=== PATIENT | female | born 2005 | race Caucasian/White ===

== ENCOUNTER 2024-08-29 13:52 | Inpatient (IN) | payer BC, SELFPAY ==
[2024-08-29 10:19] VITALS: BP 130/87
[2024-08-29 11:25] VITALS: BMI 23.8
[2024-08-29] MEDS: TYLENOL 650 MG PO ×3 (11:25→21:08)
[2024-08-29] MEDS: NSS 1000 IV ×2 (11:26→17:30)
--- NOTE | 2024-08-29 11:43 | ED.GENMED ---
History of Present Illness
General
Chief Complaint: Urinary Symptoms
Source: patient
Exam Limitations: none
Time Seen by Provider: 08/29/24 10:57
Nursing documentation reviewed up to this point in time: agreed with
History of Present Illness
History of Present Illness:
19 yo female with no PMHX presents with urinary symptoms, fever, nausea, and back pain. Approximately two weeks ago, she began experiencing symptoms suggestive of a urinary tract infection, including urgency to urinate. These symptoms initially
resolved within a couple of days. However, she noted cloudy urine persisting over the last two weeks. Four days prior to this visit, she developed significant lower back pain, predominantly on the left side. Two days ago, she had a fever of around
100-101�F. Her primary care physician noted bacterial presence and trace blood in her urine, consistent with a urinary tract infection, and prescribed a 10-day course of antibiotics. The patient has taken three doses so far.
Over the past 24 hours, the patient reported an escalation in fever, reaching up to 103.5-103.8�F, and experienced increased nausea, which limited her oral intake. She vomited after taking her morning doses of antibiotic and acetaminophen on an
empty stomach. She describes her back pain, which was significant earlier in the week, as having improved with antibiotics but remains present, especially noticeable upon movement.
Past History
Past History
ED Past Medical History: Hypothyroidism
ED Past Surgical History: Orthopedic and Other (Partial thyroidectomy, tonsillectomy, adenoidectomy)
Social History
Tobacco: Non-smoker
Alcohol: Occasional
Personal: Single
Living: with family
Employment: Employed
Review of Systems
Review of Systems
Allergies reviewed?: Yes
All Other Systems: ROS reviewed and negative except as documented in HPI and ROS
Constitutional: Reports fever; Denies chills
Respiratory: Denies trouble breathing
Cardiac: Denies chest pain
ABD/GI: Reports nausea; Denies abdominal pain, vomiting or diarrhea
: Reports urgency; Denies dysuria, frequency or difficulty voiding
Musculoskeletal: Reports back pain
Skin: Reports no symptoms
Phy Exam
Physical Exam
Physical Exam:
GENERAL: No acute distress. A&Ox3.
CONSTITUTIONAL: T 103.1
EYES: clear, conjunctivae normal
ENMT: moist mucus membranes, Pharynx nl
RESPIRATORY: Regular respirations, nonlabored, lungs clear.
CARDIOVASCULAR: Regular rate and rhythm, no murmurs, no rubs. Tachycardic 130
GI: Soft, nontender, normal BS, Flanks non tender to percussion.
MUSCULOSKELETAL: Moves with ease. Well perfused.
SKIN: Warm, dry, pink
PSYCH: Normal mood and affect. Well kept, interactive and appropriate
NEUROLOGIC: Awake, alert and oriented. No focal neurological deficits
Sepsis
Sepsis Screening
Sepsis Assessment: Sepsis
Sepsis Screen
Sepsis Screen: Sepsis
Date: 08/29/24
Time: 15:47
Course
Orders/Labs/Results
Orders:
Orders
08/29/24 10:59
Acetaminophen [Tylenol] 650 mg PO NOW STA
08/29/24 11:00
0.9% Sodium Chloride 1000 ml [Nss] 1,000 ml IV BOLUS
08/29/24 11:01
Test Result ONCE
08/29/24 11:24
Complete Blood Count/With Diff Urgent
Comprehensive Metabolic Panel Urgent
HCG, Serum Qualitative Screen Urgent
Lactic Acid Q4H
Comment: CANCEL 2nd LACTIC ACID IF 1st LACTIC ACID IS LESS THAN 2
Urinalysis Reflex To Culture Urgent
Date Specimen was Collected: 08/29/24
Time Specimen was Collected: 11:20
Urine Microscopic Reflex Cult Urgent
Blood Culture Q30M
RICHAR Source: Blood/Venous
Specimen Description:
Blood Culture Q30M
RICHAR Source: Blood/Venous
Specimen Description:
Urine Culture Urgent
RICHAR Source: U
Specimen Description:
Date Specimen was Collected: 08/29/24
Time Specimen was Collected: 11:20
08/29/24 11:45
Ondansetron Injectable [Zofran] 4 mg IV NOW STA
08/29/24 12:14
CefTRIAXone [Rocephin] 1,000 mg IV NOW STA
08/29/24 12:32
Admit/Transfer Patient As Directed
Co-Sign Provider:
Level of Care: Inpatient admission
Assign to:: Medical/Surgical
Physician / Group: Kathy
Diagnosis: Pyelonephritis
Reason for Hospitalization: IVFs, IV abx
Expected length of stay greater than two midnights?: Yes
ELOS- Estimated Length of Stay in days: 3
I certify the patient meets the requirements for IP care: Yes
PRN Pain Medication Management As Directed
May give lesser potent ordered pain med per pt: Yes
preference::
Protocol:: Medication orders for pain may be administered in a
manner that supports deferring to patient preference
when the pt is:
- Requesting an ordered lesser potent pain medication.
Least to most potent pain medications are defined
as: acetaminophen < NSAID < tramadol < opioids
(morphine, oxycodone, hydromorphone).
- Requesting a lesser dose of the same medication IF
ORDERED.
- Requesting a less intrusive route of administration
if both routes are prescribed by the provider (PO <
IV).
08/29/24 12:36
Code Status As Directed
Resuscitation Status: Full Code
Abnormal Lab Results
08/29/24
11:24
WBC 18.9 H 10^3/uL
(4.8-10.8)
Abs Immat Gran (auto) 0.1 H 10^3/uL
(0-0.05)
Absolute Neuts (auto) 16.7 H 10^3/uL
(1.4-6.5)
Absolute Lymphs (auto) 0.4 L 10^3/uL
(1.2-3.4)
Absolute Monos (auto) 1.7 H 10^3/uL
(0.1-0.6)
Neutrophils % 88.2 H %
(42.2-75.2)
Lymphocytes % 2.2 L %
(20.5-51.1)
Sodium 133 L mmol/L
(135-145)
Glucose 102 H mg/dl
(70-99)
Urine Ketones 3+ A
(Negative)
Ur Occult Blood Reflex 4+ A
(Negative)
Leukocyte Esterase Rfl 2+ A
(Negative)
Urine RBC 11-15 A /HPF
(0-2)
Urine WBC (Reflex) 30-40 A /HPF
(0-5)
Urine Bacteria (Reflex) Few A
(Negative)
Urine Albumin (Reflex) 2+ A
(Neg - Trace)
08/29/24 11:24
08/29/24 11:24
Vital Signs
Initial and Last Documented VS:
Initial Vital Signs
Temp Pulse Resp BP Pulse Ox
103.1 F H 130 16 130/87 95
08/29/24 10:19 08/29/24 10:19 08/29/24 10:19 08/29/24 10:19 08/29/24 10:19
Last Documented Vital Signs
Temp Pulse Resp BP Pulse Ox
98.5 F 91 16 118/63 99
08/29/24 12:48 08/29/24 12:48 08/29/24 10:19 08/29/24 12:48 08/29/24 12:48
MDM/Problems Addressed
Differential Diagnosis Includes:
- Complicated urinary tract infection
- Pyelonephritis
MDM/Problems Addressed:
19 yo female with no PMHX presents with urinary symptoms, fever, nausea, and back pain. Approximately two weeks ago, she began experiencing symptoms suggestive of a urinary tract infection, including urgency to urinate. These symptoms initially
resolved within a couple of days. However, she noted cloudy urine persisting over the last two weeks. Four days prior to this visit, she developed significant lower back pain, predominantly on the left side. Two days ago, she had a fever of around
100-101�F. Her primary care physician noted bacterial presence and trace blood in her urine, consistent with a urinary tract infection, and prescribed a 10-day course of antibiotics. The patient has taken three doses so far.
Over the past 24 hours, the patient reported an escalation in fever, reaching up to 103.5-103.8�F, and experienced increased nausea, which limited her oral intake. She vomited after taking her morning doses of antibiotic and acetaminophen on an
empty stomach. She describes her back pain, which was significant earlier in the week, as having improved with antibiotics but remains present, especially noticeable upon movement.
T 103.1 Tylenol ordered
Plan:
- Perform blood work to assess for infection indicators.
- Obtain a repeat urine sample for analysis.
- Administer an initial dose of intravenous antibiotics.
- Provide intravenous fluids for hydration and management of potential dehydration.
- Consider imaging (such as an ultrasound) based on test results.
- Administer antiemetics intravenously to manage nausea.
- Monitor patient response and consider admission based on evaluation results.
12:15 p.m.
CBC: WBC 18.9 w shift
CMP:Unremarkable
U/A: 30-40 WBCs, 2+ leukocytes, negative nitrites
Plan: Admit: Acute pyelonephritis
Hospitalist notified of admission
Blood and urine cultures pending
*Pulse Oximetry
SaO2: 95
Oxygen Mode of Delivery: Room air
Patient hypoxic: no
*Critical Care Note
Total Time (30-74mins, 75-104mins- exclusive of procedures): Not Applicable
Patient Management
Social determinants of health affecting care: Strong social support
ED Attending Note
-
Portions of this chart may have been created with voice recognition software.� Occasional wrong word or��sound alike� substitutions may have occurred due to the inherent limitations of voice recognition software.
Discharge Plan
Departure
Patient Disposition: Admit
Date of Disposition: 08/29/24
Time of Disposition: 12:22
Admit to: Med/Surg
Presentation/result/management discussed w/ accepting MD/DO: Hospitalist
Condition: Fair
Discharge Problem:
Acute pyelonephritis
Interventions
Interventions:
*Risk Screen - Suicide Last Done: 08/29/24 10:21
*General Assessment Last Done: 08/29/24 11:07
*Neglect/Abuse Screening Last Done: 08/29/24 10:21
*ED- Fall Risk Assessment Last Done: 08/29/24 11:07
*ED COVID-19 Vaccine History Last Done: 08/29/24 11:07
ED-Female Genitourinary Assessment Last Done: 08/29/24 11:40
[2024-08-29 11:46] LABS: Hematocrit 37.8 % (37.0-47.0); Hemoglobin 12.6 g/dL (12.0-16.0); Mean Corp Hgb Conc. 33.3 g/dL (33.0-37.0); Mean Corpuscular Volume 86.7 fL (81.0-99.0); Nucleated Red Blood Cells % 0 %; Platelet Count 227 10^3/uL (130-400); Red Cell Dist. Width 12.4 % (11.5-14.5); Urine Character Clear (Clear)
[2024-08-29] MEDS: ZOFRAN 4 MG IV (11:48)
[2024-08-29 11:54] LABS: Urine Squamous Cell >30 /LPF (Few)
[2024-08-29 11:55] LABS: Urine White Cell 30-40 /HPF (0-5)
[2024-08-29 12:10] LABS: ALT (SGPT) 16 U/L (0-35); AST (SGOT) 20 U/L (14-36); Albumin 4.8 g/dl (3.5-5.0); Alkaline Phosphatase 69 U/L (38-126); Blood Urea Nitrogen 8 mg/dl (7-17); Calcium 9.1 mg/dl (8.4-10.2); Carbon Dioxide 23 mmol/L (22-30); Chloride 99 mmol/L (98-107); Estimated Creatinine Clearance 124 ml/min; Glucose 102 mg/dl (70-99); Potassium 3.8 mmol/L (3.5-5.1); Sodium 133 mmol/L (135-145); Total Protein 8.0 g/dl (6.3-8.2); eGFR > 60.00
[2024-08-29 12:14] LABS: HCG, Serum Qualitative Screen Negative
--- NOTE | 2024-08-29 12:32 | HPS.HSE ---
Family Physician
-
Family Physician: Cathi Anna
Chief Complaint
-
Fever
History of Present Illness
Patient is a 19 y/o female past medical history of post-surgical hypothyroidism who presents with fever and back pain. Patient reports about 2 weeks ago she was experiencing some urinary frequency which resolved on it own. On Sunday, 5 days ago she
developed some left sided back pain. Two days ago she developed fevers. She saw her PCP yesterday who started her on Bactrim for a urinary tract infection for which she took two doses. Today she continued with high fevers, and developed
nausea/vomiting prompting her to come to the emergency department for evaluation. She denies any history of kidney stones.
Medical History
Past Medical History
Past Medical History: Reports Other
Additional Past Medical History:
Post-Surgical Hypothyroidism
Past Surgical History: Reports Other
Additional Past Surgical History:
Partial Thyroidectomy for Benign Mass
Social History
Tobacco: Non-smoker
Alcohol: Occasional
Family History
Family History: Not pertinent
Allergies / Home Medications
Allergies reflects when Allergies were last updated in [facility].
Home Medications with original date entered in [facility]
Allergy/Medication List:
Allergies
Allergy/AdvReac Type Severity Reaction Status Date / Time
NKA - No Known Allergies Allergy Uncoded 05/31/07 08:45
Home Medications
acetaminophen 325 mg tablet (Tylenol) 650 mg PO Q6HPRN PRN mild pain 08/29/24
ascorbic acid (vitamin C) 500 mg tablet (Vitamin C) 500 mg PO DAILY 08/29/24
levothyroxine 25 mcg tablet 25 mcg PO DAILY 08/29/24
kp-skp-xqikh 120 mcg-biotin 1,250 mcg-K1 60 aou-cwigbspm-xqwp capsule (Hair, Skin And Nails (Herbs)) 1 cap PO DAILY 08/29/24
sulfamethoxazole 800 mg-trimethoprim 160 mg tablet (Bactrim DS) 1 tab PO BID 08/29/24
vitamin B complex 1 tab PO DAILY 08/29/24
Review of Systems
-
A 12 point ROS was completed and negative except as noted: Yes
Constitutional: Reports Fever
Respiratory: Denies Cough or Trouble Breathing
Cardiac: Reports Chest Pain; Denies Palpitations
Abdomen/GI: Denies Abdominal Pain
: Reports Dysuria, Frequency and Flank Pain
Physical Exam
Vital Signs
Vital Signs
Temp Pulse Resp BP Pulse Ox
103.1 F H 130 16 130/87 95
08/29/24 10:19 08/29/24 10:19 08/29/24 10:19 08/29/24 10:19 08/29/24 11:45
Physical Exam
General: Comfortable and Conversant
HEENT: Anicteric and Moist mucous membranes
Respiratory: Clear and Non Labored Respirations; No Wheezes, Rales or Rhonchi
Cardiac: S1/S2 and Regular Rhythm; No Murmur
GI: Soft, Non Tender, Non Distended and Normal Bowel Sounds
Rectal: Deferred by Provider
Genito-urinary: No costovertebral tender (Following Tylenol given in ED)
Musculoskeletal: No Clubbing, No Cyanosis and No Edema
Skin: Warm and Dry; No Rash
Neuro: Awake, Alert, Oriented and Nonfocal/grossly intact
Psych: Calm
Laboratory Results
-
08/29/24 11:24
08/29/24 11:24
Laboratory Results
Lactic Acid Cancelled 08/29/24 15:15
Total Bilirubin 0.8 mg/dl (0.2-1.3) 08/29/24 11:24
AST 20 U/L (14-36) 08/29/24 11:24
ALT 16 U/L (0-35) 08/29/24 11:24
Alkaline Phosphatase 69 U/L (38-126) 08/29/24 11:24
Data Reviewed
-
Lab Data: Labs Reviewed by me
Impression/Plan
-
Sepsis secondary to Pyelonephritis, failed outpatient antibiotics
-Continue ceftriaxone
-Continue IVFs
-Allow clear liquids and advanced diet as tolerate
-Await urine and blood cultures
Post-Surgical Hypothyroidism
-Continue levothyroxine
[2024-08-29] MEDS: ROCEPHIN 1000 MG IV (12:35)
[2024-08-29 12:48] VITALS: BP 118/63
--- NOTE | 2024-08-29 13:12 | W.PN.UPDATE ---
Update Note
Progress Note Update
This is an addendum to the H&P written by Kareen Jarvis on 08/29/2024. �Patient seen and examined independently with PA.
19-year-old female past medical history postsurgical hypothyroidism presenting with urinary urgency, fever, nausea and left back pain starting 2 weeks ago. �Was started on 10-day course of antibiotic and completed 3 doses.
Patient with fever of 103, heart rate 130.
Labs show leukocytosis. �Urinalysis shows WBC 30-40, +2 leukocyte esterase.
Presentation consistent with acute left-sided pyelonephritis. �Check urine culture, blood cultures, IV fluids, ceftriaxone.
--- NOTE | 2024-08-29 14:52 | CM ---
Patient seen at bedside with patient mother also present in ED. Patient states that she lives with her mother and father in a 2 story home. Patient stated that she did not have any DME needs in the past. Patient PCP is Dr. Anna and she uses
the [facility] on [address] CM will continue to follow for discharge planning needs.
Plan; home with parents; watch for VN needs
[2024-08-29 17:23] VITALS: BP 123/76; BMI 23.7
[2024-08-29 23:16] VITALS: BP 111/67
[2024-08-30] MEDS: NSS 1000 IV ×4 (01:23→19:52)
[2024-08-30 05:38] LABS: Hematocrit 35.6 % (37.0-47.0); Hemoglobin 11.8 g/dL (12.0-16.0); Mean Corp Hgb Conc. 33.1 g/dL (33.0-37.0); Mean Corpuscular Volume 88.3 fL (81.0-99.0); Platelet Count 208 10^3/uL (130-400); Red Cell Dist. Width 12.3 % (11.5-14.5)
[2024-08-30] MEDS: SYNTHROID 25 MCG PO (05:57)
[2024-08-30 06:22] LABS: Blood Urea Nitrogen 4 mg/dl (7-17); Calcium 8.3 mg/dl (8.4-10.2); Carbon Dioxide 23 mmol/L (22-30); Chloride 106 mmol/L (98-107); Estimated Creatinine Clearance 124 ml/min; Glucose 109 mg/dl (70-99); Potassium 4.0 mmol/L (3.5-5.1); Sodium 136 mmol/L (135-145); eGFR > 60.00
[2024-08-30 07:00] VITALS: BP 127/68
[2024-08-30] MEDS: TYLENOL 650 MG PO ×3 (08:32→19:53)
[2024-08-30] MEDS: STERILE WATER FOR INJECTION 10 ML IV ×2 (08:33→19:53)
[2024-08-30] MEDS: MAXIPIME 1000 MG IV ×2 (08:33→19:52)
--- NOTE | 2024-08-30 08:55 | W.PN.HOSP.TC ---
Today's Communication/Plan
-
.
Assessment / Plan
Assessment / Plan
Physical Exam
General: Comfortable and Conversant
HEENT: Anicteric and Moist mucous membranes
Respiratory: Clear and Non Labored Respirations; No Wheezes, Rales or Rhonchi
Cardiac: S1/S2 and Regular Rhythm; No Murmur
GI: Soft, Non Tender, Non Distended and Normal Bowel Sounds
Genito-urinary: No costovertebral tender
Musculoskeletal: No Clubbing, No Cyanosis and No Edema
Skin: Warm and Dry; No Rash
Neuro: Awake, Alert, Oriented and Nonfocal/grossly intact
Psych: Calm
Sepsis POA secondary to Pyelonephritis, failed outpatient antibiotics
-Continue IV Abx, but change to Cefepime
-can stop IVF since she is tolerating diet
No fever this morning
No flank pain or tenderness
Renal US is ordered
Normal renal function
f/w urine and blood cultures
Appreciate ID help
Post-Surgical Hypothyroidism
-Continue levothyroxine
# Hyponatremia, mild, resolving
# Sinus tachycardia
No chest pain
Normal life Style with no compromise
Reactive tachycardia due to infection/ fevers
Total time spent to see the patient, examine the patient, review lab results and data, discuss treatment plan with patient, nursing staff around 55 minutes
Anticipated Discharge: Within 24 hours
Subjective/Interval History
-
Date of Service: August 30, 2024
she feels better
No flank pain or abdominal pain
No fever or chills
No nausea
Objective Data
-
Labs:
Laboratory Results
08/30/24
05:28
WBC 12.8 H
Hgb 11.8 L
Hct 35.6 L
Plt Count 208
Sodium 136
Potassium 4.0
Chloride 106
Carbon Dioxide 23
BUN 4 L
Creatinine 0.7
Glucose 109 H
Calcium 8.3 L
Vital Signs:
Vital Signs
Temp Pulse Resp BP Pulse Ox
99.8 F 129 18 127/68 94
08/30/24 08:45 08/30/24 07:00 08/30/24 07:00 08/30/24 07:00 08/30/24 07:00
--- NOTE | 2024-08-30 13:29 | CON.ID ---
Consultation
-
Date/Time Consultation Requested: 08/30/2024 0641
Date/Time Consultation Performed: 08/30/2024 1300
Requesting Provider: Dr. Bran
Performing Provider: Dr. Herron
Reason for Consultation: UTI, fever, suspected pyelonephritis
Chief Complaint / Past History
History of Present Illness
Genny Candelaria is a 19-year-old female being evaluated the request of Dr. Bran regarding fever and potential pyelonephritis. History is obtained from chart review, along with patient interview.
The patient reports that approximately 2 weeks ago she developed some urinary urgency which resolved over the course of 2 to 3 days. At that time she denied any dysuria or hematuria only the feeling of her urgency. She was well until approximately
5 days ago when she developed some left low back discomfort. She initially thought that it was related to 'poor posture', as she notes that she stands throughout the day. Approximately 3 days ago she developed a fever later in the evening, and the
next day she saw her PCP who took a urine culture and urinalysis (currently unavailable to me) and the patient was placed on empiric Bactrim DS 1 p.o. BID. She took approximately 2 doses of the Bactrim, but then developed fevers up to 103.7 degrees
later that evening and through the night. She called her PCP the next morning who sent her to the emergency room for further evaluation.
The patient was found to have a marked leukocytosis and was started on empiric antibiotics. At this point, she reports feeling improved. She notes some decrease in left flank discomfort, and increased energy. She denies any dysuria.
Past History
Additional Past Medical History:
Hypothyroidism
Additional Past Surgical History:
Partial thyroidectomy
Allergy History:
No Known Allergies Allergy (Unverified 08/29/24 16:48)
Medications Reviewed: Yes
Current Antibiotics:
Cefepime 1 gm IV q.12 hours
Social History
Tobacco: Non-Smoker
Alcohol: Occasional
Drug: None
Personal: Single
Living: With Family
Employment: Employed
Family History
Family History: Not Pertinent
Review of Systems
Vital Signs
Temp Pulse Resp BP Pulse Ox
99.7 F 129 18 127/68 94
08/30/24 11:30 08/30/24 07:00 08/30/24 07:00 08/30/24 07:00 08/30/24 07:00
Physical Exam
Physical Exam
Constitutional: No Acute Distress, Well Developed, Comfortable and Non-toxic
Eyes: No Conjunctival Hemorrhage and Sclera Anicteric
Oral: Poor Dentition, No Thrush and No Ulcers
Lymph Nodes: Negative Lymphadenopathy
Cardiovascular: Regular Rate and S1/S2; Negative S3/S4
Pulmonary: Clear
Gastrointestinal: Soft, Non Tender, Non Distended and Normal Bowel Sounds
Genito-Urinary: CVA Tenderness (minimal, left)
Extremities: Negative Edema, Cyanosis or Erythema
Neurological: Awake and Alert
Psychological: Calm
Lab / Diagnostic Study Results
08/30/24 05:28
08/30/24 05:28
Abs Immat Gran (auto) 0.1 10^3/uL (0-0.05) H 08/29/24 11:24
Absolute Neuts (auto) 16.7 10^3/uL (1.4-6.5) H 08/29/24 11:24
Absolute Lymphs (auto) 0.4 10^3/uL (1.2-3.4) L 08/29/24 11:24
Absolute Monos (auto) 1.7 10^3/uL (0.1-0.6) H 08/29/24 11:24
Absolute Basos (auto) 0.0 10^3/uL (0-0.2) 08/29/24 11:24
Immature Gran % 0.5 % (0-0.5) 08/29/24 11:24
Neutrophils % 88.2 % (42.2-75.2) H 08/29/24 11:24
Lymphocytes % 2.2 % (20.5-51.1) L 08/29/24 11:24
Monocytes % 8.9 % (1.7-9.3) 08/29/24 11:24
Eosinophils % 0.0 % (0-6) 08/29/24 11:24
Basophils % 0.2 % (0-2) 08/29/24 11:24
Lactic Acid Cancelled 08/29/24 15:15
Ur Squamous Epith Cells >30 /LPF (Few) 08/29/24 11:24
Microbiology Results
Micro:
08/29/24 11:24 Blood Culture - Preliminary
Blood/Venous No Growth in 24 hours- Final report to follow
08/29/24 11:24 Blood Culture - Preliminary
Blood/Venous No Growth in 24 hours- Final report to follow
08/29/24 11:24 Urine Culture - Pending
Urine
Imaging:
08/30/2024 Renal ultrasound: both kidneys have normal sonographic appearance, with no evidence for mass, calculus or pelvicalyceal dilatation.
Assessment / Plan
Leukocytosis
Suspected left pyelonephritis
Fever
Recommendations:
Continue with empiric cefepime.
Follow white count and temperature curve.
Await inpatient urine culture and blood cultures.
Outpatient urinalysis and culture are currently unavailable to me, I have asked patient to check her patient portal to see if they appear, which may guide further antibiotic selection and potential de-escalation.
Further recommendations as additional data is returned.
[2024-08-30 15:00] VITALS: BP 142/86
[2024-08-30 23:00] VITALS: BP 115/71
[2024-08-31] MEDS: NSS 1000 IV (03:05)
[2024-08-31] MEDS: SYNTHROID 25 MCG PO (05:51)
[2024-08-31 07:00] VITALS: BP 127/76
[2024-08-31] MEDS: MAXIPIME 1000 MG IV (07:35)
[2024-08-31] MEDS: STERILE WATER FOR INJECTION 10 ML IV (07:35)
--- NOTE | 2024-08-31 08:58 | W.PN.HOSP.TC ---
Addendum entered and electronically signed by Vishal Bran MD 08/31/24 10:46:
Addendum
Patient is feeling much better. She is tolerating diet. She wants to go home. She was seen by ID doctor and recommendation to give ciprofloxacin. She was advised to call ID doctor if she develops side effects with ciprofloxacin including
tendinitis.
Total discharge time spent to see the patient, examine the patient, review lab results and data, discuss discharge plan with patient, ID, nursing staff around 45 minutes
Original Note:
Today's Communication/Plan
-
IV Cefepime
dc IVF
Assessment / Plan
Assessment / Plan
Physical Exam
General: Comfortable and Conversant
HEENT: Anicteric and Moist mucous membranes
Respiratory: Clear and Non Labored Respirations; No Wheezes, Rales or Rhonchi
Cardiac: S1/S2 and Regular Rhythm; No Murmur
GI: Soft, Non Tender, Non Distended and Normal Bowel Sounds
Genito-urinary: No costovertebral tender
Musculoskeletal: No Clubbing, No Cyanosis and No Edema
Skin: Warm and Dry; No Rash
Neuro: Awake, Alert, Oriented and Nonfocal/grossly intact
Psych: Calm
Sepsis POA secondary to Pyelonephritis, failed outpatient antibiotics
-Continue IV Abx, changed to Cefepime
-can stop IVF since she is tolerating diet
No fever this morning
HCG negative
No flank pain or tenderness
Renal US , no hydronephrosis
Normal renal function
f/w urine and blood cultures
Appreciate ID help
Post-Surgical Hypothyroidism
-Continue levothyroxine
# Hyponatremia, mild, resolving
# Sinus tachycardia
No chest pain
Normal life Style with no compromise
Reactive tachycardia due to infection/ fevers
Total time spent to see the patient, examine the patient, review lab results and data, discuss treatment plan with patient, nursing staff around 55 minutes
Anticipated Discharge: Within 24 hours
Subjective/Interval History
-
Date of Service: August 31, 2024
No chest pain
No renal colic
No dysuria
Objective Data
-
Vital Signs:
Vital Signs
Temp Pulse Resp BP Pulse Ox
98.6 F 98 18 127/76 96
08/31/24 07:00 08/31/24 07:00 08/31/24 07:00 08/31/24 07:00 08/31/24 07:00
I&O
08/30/24 08/31/24 09/01/24
06:59 06:59 06:59
Intake Total 3240 / 3240
Balance 3240 / 3240
--- NOTE | 2024-08-31 10:36 | W.DCSUMMARY ---
Discharge Summary
Discharge Data
Date of Admission: 08/29/24
Date of Discharge: 08/31/24
-
Pending Results: No
Hospital Course
19-year-old female presented with fever and back pain. Approximately 2 weeks ago she developed some urinary urgency which resolved over the course of 2 to 3 days. At that time she denied any dysuria or hematuria only the feeling of her urgency.
She was well until approximately 5 days ago before presenting to ER when she developed some left low back discomfort. She initially thought that it was related to 'poor posture', then she started to have fever. Her primary care physician who took
a urine culture and urinalysis (currently unavailable to us) and the patient was placed on empiric Bactrim DS 1 p.o. BID. She took approximately 2 doses of the Bactrim, but then developed high fevers up to 103.7 degrees. She called her PCP the
next morning who sent her to the emergency room for further evaluation. The patient was found to have a marked leukocytosis and was started on empiric IV antibiotics. Patient started to improve with resolution of fever. She did not have flank
pain. Leukocytosis resolved. Blood culture showed no growth as of today. Urine culture positive for gram negative bacilli. Patient was evaluated by infectious disease [facility] consultant. Patient felt much better wanted to go home. ID doctor
recommended ciprofloxacin for 10 days. Patient was counseled regarding potential side effects of ciprofloxacin including tendinitis, she verbalized understanding. Renal ultrasound did not show hydronephrosis. She had normal renal function. She
was able to tolerate diet well. She remained hemodynamically stable was discharged home in stable condition.
Discharge Plan
-
Patient Disposition: Home (Routine Discharge)
Discharge Diagnosis/Procedures: Leukocytosis
Suspected left pyelonephritis
Fever
You were seen by ID doctor, you received IV antibiotic. Blood culture did not show any growth as of to date. ID doctor recommended ciprofloxacin twice a day for 10 days.
Potential side effects of ciprofloxacin include GI upset/rash/tendinitis( you need to stop taking ciprofloxacin if you start to have joint pain or tenderness and call your doctors to replace it).
Avoid urinary retention and keep well hydration
Diet: As tolerated
Referrals:
Cathi Anna PA-C [Family Provider, [facility]]
Garcai Herron DO [Active, Infectious Diseases]
Referral Note: As needed
Prescriptions:
New
ciprofloxacin HCl 500 mg tablet
500 mg PO BID Qty: 20 0RF
Continued
levothyroxine 25 mcg tablet
25 mcg PO DAILY
acetaminophen [Tylenol] 325 mg Tablet
650 mg PO Q6HPRN PRN (Reason: mild pain)
ascorbic acid (vitamin C) [Vitamin C] 500 mg Tablet
500 mg PO DAILY
vitamin B complex Tablet
1 tab PO DAILY
Hair, Skin And Nails (Herbs) 120-1,250-60 mcg Capsule
1 cap PO DAILY
Discontinued
sulfamethoxazole-trimethoprim [Bactrim DS] 800-160 mg Tablet
1 tab PO BID
Rx Instructions:
for 10 days starting 08/28/24
Discharge Orders:
Discharge Patient (As Directed); Ordered 08/31/24
Ordered By: Vishal Bran
Discharge Date and Time
Print Language: BELARUSIAN
[2024-08-31 11:02] VITALS: BP 119/71
--- NOTE | 2024-08-31 11:09 | CM ---
Patient discharge today
IMM n/a
PLAN: home, no needs
friend transported
--- NOTE | 2024-08-31 11:10 | W.PN.ID1 ---
Date of Service
Date of Service: August 31, 2024
Today's Communication
Transition to oral ciprofloxacin.
Assessment / Plan
Leukocytosis
Suspected left pyelonephritis
Fever
Recommendations:
Urine culture here with E. coli. Outpatient urinalysis from 08/28/2024 sent to [facility] revealed greater than 30 WBCs, but urine culture is still pending.
I had a long discussion with the patient and her parents who are present at the bedside. The patient is very interested in going home. We reviewed that full cultures are not finalized, and if transition to an oral regiment, there is a small
possibility that the isolate is not susceptible to it. At that point, she would need to change antibiotics, or potentially come back into the hospital for IV therapy, although this is of very small likelihood. Via shared decision making, after
explaining the risks and benefits of changing to an empiric oral regimen, they are comfortable with moving in that direction.
At discharge, the patient can be transition to oral ciprofloxacin 500 mg p.o. BID, to complete an additional 10 days of therapy.
I will follow her pending cultures (both here and at [facility]) and make any changes that may be necessary.
����������������������������������������������������������
Chief Complaint
-: UTI
Subjective / Review of Systems
Patient seen and examined. Reports feeling much improved today. Denies any flank pain. Denies fevers or chills.
Vital Signs / Physical Exam
Vital Signs
Vital Signs
Temp Pulse Resp BP Pulse Ox
98.6 F 91 18 119/71 100
08/31/24 11:02 08/31/24 11:02 08/31/24 11:02 08/31/24 11:02 08/31/24 11:02
Physical Exam
Constitutional: No Acute Distress, Comfortable and Non-toxic
Eyes: Sclera Anicteric
Cardiovascular: S1/S2; Negative S3/S4
Pulmonary: Non Labored
Gastrointestinal: Non Tender and Non Distended
Genito-Urinary: Negative CVA Tenderness
Extremities: Negative Edema
Neurological: Awake, Alert and Oriented
Objective Data
Lab Data
Lab Results
08/30/24 05:28
08/30/24 05:28
Estimated Creat Clear 124 ml/min 08/30/24 05:28
Lactic Acid Cancelled 08/29/24 15:15
Total Bilirubin 0.8 mg/dl (0.2-1.3) 08/29/24 11:24
AST 20 U/L (14-36) 08/29/24 11:24
ALT 16 U/L (0-35) 08/29/24 11:24
Alkaline Phosphatase 69 U/L (38-126) 08/29/24 11:24
Most recent labs reviewed.
Micro Results:
08/29/24 11:24 Urine Culture - Final
Urine Escherichia coli
08/29/24 11:24 Blood Culture - Preliminary
Blood/Venous No Growth in 24 hours- Final report to follow
08/29/24 11:24 Blood Culture - Preliminary
Blood/Venous No Growth in 24 hours- Final report to follow
Imaging:
08/30/2024 Renal ultrasound: both kidneys have normal sonographic appearance, with no evidence for mass, calculus or pelvicalyceal dilatation.
Care Review
Plan reviewed with: Physician (Hospitalist)
== END 2024-08-31 11:03 | disposition home or self-care (01) | DRG 872 ==
LOC: 3 WEST ACU 13:52
PROVIDERS: Physician Assistant Medical; Registered Nurse; ADMITTING PHYSICIAN Hospitalist; ATTENDING PHYSICIAN Internal Medicine; EMERGENCY PHYSICIAN Emergency Medicine; FAMILY PHYSICIAN Physician Assistant Medical; OTHER PHYSICIAN Internal Medicine Infectious Disease
DX: A41.9 Sepsis, unspecified organism (principal); N10 Acute pyelonephritis; E89.0 Postprocedural hypothyroidism; Z79.890 Hormone replacement therapy
CPT/HCPCS: 76775; 80048; 80053; 81003; 81015; 83605; 84703; 85025; 85027; 87040; 87077; 87086; 87186; 96361; 96374; 96375; 99284